=== PATIENT | female | born 2000 | race Caucasian/White ===

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

== ENCOUNTER 2021-02-09 11:55 | Outpatient (CLI) | payer OTHER, SELFPAY ==
[2021-02-09 13:27] LABS: Basophils Percent Auto 0.2 % (0.2-1.2); Eosinophils Absolute Auto 0.2 K/mm3 (0-0.3); Eosinophils Percent Auto 1.3 % (0-4.4); Hematocrit 37.9 % (37.0-47.0); Hemoglobin 12.8 g/dL (12.0-15.0); Immature Granulocyte Percent A 0.6 % (0-0.5); Lymphocytes Absolute Auto 1.62 K/mm3 (0.9-3.2); Lymphocytes Percent Auto 10.1 % (18.3-44.2); Mean Corpuscular HGB Conc 33.8 g/dl (32-36); Mean Corpuscular Hemoglobin 31.8 pg (26-34); Mean Corpuscular Volume 94.3 fl (80-100); Mean Platelet Volume 9.4 fl (7.4-10.4); Monocytes Absolute Auto 0.8 K/mm3 (0.1-0.6); Monocytes Percent Auto 4.8 % (2.6-8.5); Neutrophils Absolute Auto 13.3 K/mm3 (1.3-6.7); Platelet Count Result 348 k/mm3 (150-375); Red Blood Count 4.02 M/mm3 (4.2-5.4); Red Cell Distribution Width 12.4 % (11.5-14.5); White Blood Count 16.1 K/mm3 (4.5-10.0)
[2021-02-09 13:47] LABS: Glucose 1 Hour PP 50gm Dose 89 mg/dL
== END 2021-02-09 11:56 | disposition home or self-care (01) ==
LOC: ANHLAB 11:59
PROVIDERS: PCP Nurse Practitioner Family; Visit Provider Student in an Organized Health Care Education/Training Program
DX: Z34.02 Encounter for supervision of normal first pregnancy, second trimester (principal)
CPT/HCPCS: 36415; 82947; 85025

== ENCOUNTER 2021-02-16 18:17 | Observation (INO) | payer OTHER, SELFPAY ==
[2021-02-16] VITALS (16 sets, daily range): BP systolic 99; BP diastolic 72; PULSE 69–103; O2SAT 100
--- NOTE | 2021-02-16 18:15 | PC.NURSE ---
Cat G gave report to Rina ramirez RN. Pt taken to OB via W/C.
[2021-02-16 19:03] LABS: Add Urine Microscopic? YES; Appearance Urine Clear (Clear); Bacteria Urine Trace /hpf; Bilirubin Urine Negative (Negative); Blood Urine Negative (Negative); Color Urine Straw (Yellow); Glucose Urine UA Negative (Negative); Ketones Urine 1+ mg/dL (Negative); Leukocyte Esterase Ur Negative LEU/UL (NEGATIVE); Mucus Urine Rare /lpf; Nitrate Urine Negative (Negative); Protein Urine Negative (Negative); Squamous Epithelial Cell Urine Occasional /hpf (Few); Urobilinogen Urine Negative mg/dL (<2.0); WBC Urine 0-3 /hpf (0-3)
[2021-02-16 19:08] LABS: Specific Grav Ur 1.004 (1.001-1.035)
[2021-02-16] MEDS: TERBUTALINE SULFATE 1 MG/ML VIAL 0.25 MG SUB-Q (19:27)
[2021-02-16 20:02] LABS: Fetal Fibronectin Negative
--- NOTE | 2021-03-10 08:30 | PM.OBTRLD ---
OB - Triage/Final Diagnosis Visit Information Comments/Additional reasons for admission: I have assessed the risk for this patient, Janeen Mo, and determined that she would benefit from observation care. Evaluation Laboratory results: Laboratory Tests 02/16/21 02/16/21 18:48 19:26 Urine Color Straw Urine Appearance Clear Urine pH 7.0 Ur Specific [place] 1.004 Urine Protein Negative Urine Glucose (UA) Negative Urine Ketones 1+ H Ur Blood (Man) Negative Urine Nitrate Negative Urine Bilirubin Negative Urine Urobilinogen Negative Ur Leukocyte Esterase Negative Urine WBC 0-3 Ur Squamous Epith Cells Occasional Urine Bacteria Trace Urine Mucus Rare Fibronectin Negative Final Diagnosis (1) Pelvic pain affecting : Code(s): O26.899 - Other specified related conditions, unspecified trimester; R10.2 - Pelvic and perineal pain Status: Acute
== END 2021-02-16 20:42 | disposition home or self-care (01) ==
PROVIDERS: Admitting Provider Obstetrics & Gynecology; PCP Nurse Practitioner Family; Visit Provider Obstetrics & Gynecology
DX: O26.893 Other specified pregnancy related conditions, third trimester (principal); R10.2 Pelvic and perineal pain; Z3A.29 29 weeks gestation of pregnancy
CPT/HCPCS: 81001; 82731; 87086; 96372; G0378; G0379; J3105

== ENCOUNTER 2021-02-26 10:47 | Emergency (ER) | payer OTHER, SELFPAY ==
--- NOTE | ~2021-02-26 | XR_ITS ---
EXAMINATION: XR hand LT min 3V DATE: 02/26/2021 11:06 INDICATION: Left hand pain. TECHNIQUE: 3 views of left hand were obtained. COMPARISON: Left wrist radiograph 02/07/2013 FINDINGS: Bone alignment is normal. There is a punctate calcification at ulnar base of first proximal phalanx. Joint spaces are normal. IMPRESSION: 1. Punctate calcification at ulnar base of first proximal phalanx, which may be an acute avulsion fra cture or a finding from old injury. Reviewed, dictated and finalized at location A. [employer] IMPRESSION: 1. Punctate calcification at ulnar base of first proximal phalanx, which may be an acute avulsion fracture or a finding from old injury.
[2021-02-26 10:53] VITALS: BP 106/70; PULSE 102; RESP 16; TEMP 36.8; O2SAT 100
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
--- NOTE | 2021-02-26 12:15 | PC.NURSE ---
Pt was able to move thumb but has severe pain, cap refill less than 3sec
--- NOTE | 2021-02-26 12:27 | PC.NURSE ---
PCT at bedside completing thumb spica
[2021-02-26 12:59] VITALS: BP 118/77; PULSE 90; RESP 18; O2SAT 97
== END 2021-02-26 13:00 | disposition home or self-care (01) ==
PROVIDERS: Emergency Provider Emergency Medicine; PCP Nurse Practitioner Family
DX: S63.602A Unspecified sprain of left thumb, initial encounter (principal); Z87.891 Personal history of nicotine dependence; W22.8XXA Striking against or struck by other objects, initial encounter
CPT/HCPCS: 29125; 73130; 99283

== ENCOUNTER 2021-03-18 16:32 | Observation (INO) | payer OTHER, SELFPAY ==
[2021-03-18 17:00] VITALS: BP 117/80; PULSE 96
[2021-03-18 17:10] VITALS: BMI 21.9
--- NOTE | 2021-03-18 17:10 | OBADM ---
This patient, Janeen Mo, admitted to the OB room [facility] for observation. Patient/family oriented to hospital policies and general routines including ID bracelet, bed and alarms, visiting hours, pain management, procedures, bathroom and other care routines, personal items, smoking policy, room service/diet, and visiting hours. Patient/Family are encouraged to report perceived risks to care and to ask questions if they do not understand what they are told or what they should do.
[2021-03-18 17:15] VITALS: BP 110/83; PULSE 87
--- NOTE | 2021-04-08 12:56 | PM.OBTRLD ---
OB - Triage/Final Diagnosis Visit Information Comments/Additional reasons for admission: I have assessed the risk for this patient, Janeen Mo, and determined that she would benefit from observation care. Final Diagnosis (1) Decreased movement: Code(s): O36.8190 - Decreased movements, unspecified trimester, not applicable or unspecified Status: Acute
== END 2021-03-18 18:01 | disposition home or self-care (01) ==
PROVIDERS: Admitting Provider Student in an Organized Health Care Education/Training Program; PCP Nurse Practitioner Family; Visit Provider Student in an Organized Health Care Education/Training Program
DX: O36.8130 Decreased fetal movements, third trimester, not applicable or unspecified (principal); Z3A.33 33 weeks gestation of pregnancy
CPT/HCPCS: 84112; G0378; G0379

== ENCOUNTER 2021-03-26 09:59 | Outpatient (CLI) | payer OTHER, SELFPAY ==
[2021-03-26 10:27] LABS: Basophils Percent Auto 0.2 % (0.2-1.2); Eosinophils Absolute Auto 0.1 K/mm3 (0-0.3); Eosinophils Percent Auto 0.8 % (0-4.4); Hematocrit 36.4 % (37.0-47.0); Hemoglobin 12.4 g/dL (12.0-15.0); Immature Granulocyte Absolute 0.07 K/mm3 (0.00-0.031); Immature Granulocyte Percent A 0.5 % (0-0.5); Lymphocytes Absolute Auto 2.05 K/mm3 (0.9-3.2); Lymphocytes Percent Auto 15.9 % (18.3-44.2); Mean Corpuscular HGB Conc 34.1 g/dl (32-36); Mean Platelet Volume 9.7 fl (7.4-10.4); Monocytes Absolute Auto 0.7 K/mm3 (0.1-0.6); Monocytes Percent Auto 5.3 % (2.6-8.5); Neutrophils Percent Auto 77.3 % (45.5-73.1); Platelet Count Result 313 k/mm3 (150-375); Red Cell Distribution Width 12.1 % (11.5-14.5); White Blood Count 12.9 K/mm3 (4.5-10.0)
[2021-03-26 11:19] LABS: HIV 1/2 Ab P24 Ag Result Negative (Negative)
[2021-03-26 11:55] LABS: Rapid Plasma Reagin Non-Reactive (NonReactive)
== END 2021-03-26 10:00 | disposition home or self-care (01) ==
PROVIDERS: PCP Nurse Practitioner Family; Visit Provider Student in an Organized Health Care Education/Training Program
DX: Z34.90 Encounter for supervision of normal pregnancy, unspecified, unspecified trimester (principal); Z3A.00 Weeks of gestation of pregnancy not specified
CPT/HCPCS: 36415; 85025; 86592; 86703; G0432

== ENCOUNTER 2021-04-15 00:20 | Inpatient (IN) | payer OTHER, SELFPAY ==
[2021-04-15] VITALS (101 sets, daily range): BP systolic 84–160; BP diastolic 46–127; PULSE 50–210; RESP 16–20; TEMP 36.2–36.9; O2SAT 99–100; BMI 22.6
[2021-04-15 01:02] LABS: Basophils Percent Auto 0.3 % (0.2-1.2); Eosinophils Absolute Auto 0.1 K/mm3 (0-0.3); Eosinophils Percent Auto 0.5 % (0-4.4); Hemoglobin 13.1 g/dL (12.0-15.0); Immature Granulocyte Absolute 0.08 K/mm3 (0.00-0.031); Immature Granulocyte Percent A 0.5 % (0-0.5); Mean Corpuscular HGB Conc 34.5 g/dl (32-36); Mean Corpuscular Hemoglobin 30.8 pg (26-34); Mean Corpuscular Volume 89.2 fl (80-100); Mean Platelet Volume 9.7 fl (7.4-10.4); Monocytes Absolute Auto 0.9 K/mm3 (0.1-0.6); Neutrophils Absolute Auto 11.6 K/mm3 (1.3-6.7); Neutrophils Percent Auto 74.7 % (45.5-73.1); Platelet Count Result 345 k/mm3 (150-375); Red Blood Count 4.26 M/mm3 (4.2-5.4); Red Cell Distribution Width 12.7 % (11.5-14.5); White Blood Count 15.5 K/mm3 (4.5-10.0)
--- NOTE | 2021-04-15 01:12 | LDADM ---
This patient, Janeen Mo, was admitted to Labor/Delivery/Recovery 104 on 04/15/21 at 00:20. Plans for labor, pain management and were discussed with patient. Patient/family oriented to hospital policies and general routines including ID bracelet, bed and alarms, visiting hours, pain management, procedures, bathroom and other care routines, personal items, smoking policy, room service/diet and guest tray routines, infant security routines, and visiting hours. Patient/Family are encouraged to report perceived risks to care and to ask questions if they do not understand what they are told or what they should do. See OBIX for further documentation.
[2021-04-15] MEDS: LACTATED RINGERS 1,000 ML 125 ML IV CONT ×2 (01:31→08:41)
[2021-04-15] MEDS: OXYTOCIN 30 UNITS/NS 500 ML 30 UNITS/500 ML BAG IV CONT (01:32)
--- NOTE | 2021-04-15 05:22 | WPDANESEPP ---
Anes - Eval Pre Procedure Procedure: Labor epidural Date/Time: 04/15/21 05:22 Surgeon: Ethan Preop Diagnosis: Abd pain with contractions Pre Op Diagnosis: IOL Patient Data Age: 21 Gender: F Height: 1.63 m Weight: 60 kg Last Vital Signs Temp 97.9 F 04/15/21 01:45 Pulse 70 04/15/21 04:45 BP 102/65 04/15/21 04:45 Allergies Allergy/AdvReac Type Severity Reaction Status Date / Time No Known Allergies Allergy Unknown Verified 04/14/21 08:57 Home Medications Medication Instructions Recorded Confirmed Type docosahexaenoic acid 200 mg capsule mg PO 10/22/20 History Laboratory Tests 04/15/21 04/15/21 04/15/21 00:51 00:51 00:51 WBC 15.5 K/mm3 H K/mm3 (4.5-10.0) RBC 4.26 M/mm3 M/mm3 (4.2-5.4) Hgb 13.1 g/dL g/dL (12.0-15.0) Hct 38.0 % % (37.0-47.0) MCV 89.2 fl fl (80-100) MCH 30.8 pg pg (26-34) MCHC 34.5 g/dl g/dl (32-36) RDW 12.7 % % (11.5-14.5) Plt Count 345 k/mm3 k/mm3 (150-375) MPV 9.7 fl fl (7.4-10.4) Immature Gran % (Auto) 0.5 % % (0-0.5) Neut % (Auto) 74.7 % H % (45.5-73.1) Lymph % (Auto) 18.0 % L % (18.3-44.2) [place] % (Auto) 6.0 % % (2.6-8.5) Eos % (Auto) 0.5 % % (0-4.4) Baso % (Auto) 0.3 % % (0.2-1.2) Lymph # (Auto) 2.80 K/mm3 K/mm3 (0.9-3.2) [place] # (Auto) 0.9 K/mm3 H K/mm3 (0.1-0.6) Eos # (Auto) 0.1 K/mm3 K/mm3 (0-0.3) Baso # (Auto) 0.0 K/mm3 K/mm3 (0.0-0.1) Abs Immat Gran (auto) 0.08 K/mm3 H K/mm3 (0.00-0.031) Absolute Neuts (auto) 11.6 K/mm3 H K/mm3 (1.3-6.7) Absolute Nucleated RBC 0.0 K/mm3 K/mm3 (0.0-0.012) Nucleated RBC % 0.0 % % (0.0-0.2) RPR Pending Blood Type A Positive Antibody Screen Negative Patient hx anesthesia problems: none Family hx anesthesia problems: none Results Review: All pre-operative results and documents have been reviewed as part of the pre-operative evaluation. [facility] Past Medical History Medical History Anxiety IUGR, Surgical History Surgical History S/P right knee surgery Social History Social History Smoking status: Never smoker Alcohol intake: never Substance use: current Gender identity (if verbalized by the patient): Female Spiritual care concerns: No Exam Day of Procedure 04/15/21 05:22 Patient weight: normal Airway: Mallampati scale class II Neurological: alert and oriented
[2021-04-15] MEDS: fentaNYL CITRATE INJ (*CRX) 100 MCG/2 ML VIAL IV PUSH ×2 (08:41→09:44)
[2021-04-15 09:16] LABS: Amphetamine Screen Urine Negative (Negative); Barbiturate Screen Urine Negative (Negative); Benzodiazepines Screen Urine Negative (Negative); Cannabinoid Screen Urine Positive (Negative); Cocaine Screen Urine Negative (Negative); Methadone Screen Urine Negative (Negative); Opiate Screen Urine Negative (Negative); Phencyclidine Screen Urine Negative (Negative)
--- NOTE | 2021-04-15 09:38 | PM.IMHP ---
H&P: HPI History of Present Illness Date/Time: 04/15/21 09:38 Patient is a 21-year-old LMP 07/17/2020 currently 37 weeks 3 days gestation. Patient is dated by an ultrasound on 11/05/2020 at 14 weeks gestation with an YESSY 05/03/2021. Patient presents to labor and delivery for induction of labor secondary to intrauterine growth restriction. growth restriction was identified in February 2021 and patient has been followed closely since then. Estimated weight less than 3% on growth scan yesterday and recommendation was made by MFM to proceed with delivery. In general, patient reports feeling well. Denies any vaginal bleeding or leakage of fluid. Reports occasional contractions. Reports good movement. Chief Complaint: Intrauterine at 37w3d gestation Intrauterine growth restriction Review of Systems Review of Systems: All systems reviewed & are unremarkable except as noted in HPI and below Constitutional: Constitutional: Reports as per HPI, Reports no additional constitutional complaints, Denies chills, Denies fever(s), Denies headache(s) and Denies night sweats Eyes: Eyes: Reports as per HPI and Reports no additional eye complaints ENT: Reports system reviewed and no additional complaints, except as documented, Reports as per HPI, Reports Normal hearing present and Denies headache(s) Cardiovascular: Cardiovascular: Reports as per HPI, Reports no additional cardiovascular complaints, Denies chest pain and Denies dyspnea Respiratory: Respiratory: Reports as per HPI, Reports no additional respiratory complaints, Denies cough and Denies dyspnea Gastrointestinal: Gastrointestinal: Reports as per HPI, Reports no additional gastrointestinal complaints, Denies abdominal pain, Denies change in bowel habits, Denies change in stool character, Denies nausea and Denies vomiting Genitourinary: Genitourinary: Reports no additional female genitourinary complaints, Reports as per HPI, Denies abnormal vaginal bleeding, Denies genital lesions, Denies hot flashes, Denies dyspareunia, Denies pelvic pain, Denies sexual dysfunction, Denies urinary incontinence, Denies vaginal discharge, Denies vaginal dryness and Denies vaginal odor Musculoskeletal: Musculoskeletal: Reports no additional musculoskeletal complaints and Reports as per HPI Integumentary/Breasts: Skin/Breast: Reports system reviewed and no additional complaints, except as docu, Reports as per HPI, Denies breast pain and Denies nipple discharge Neurologic: Reports system reviewed and no additional complaints, except as documented, Reports as per HPI, Reports Normal hearing present and Denies headache(s) Psychiatric: Psychiatric: Reports no additional psychiatric complaints, Reports as per HPI, Denies anxiety and Denies depression Endocrine: Endocrine: Reports no additional endocrine complaints and Reports as per HPI Hematologic/Lymphatic: Hematologic/Lymphatic: Reports no additional hematologic/lymphatic complaints and Reports as per HPI Allergic/Immunologic: Allergic/Immunologic: Reports no additional allergic/immunologic complaints and Reports as per HPI PMFSH Past Medical History Medical History Anxiety IUGR, Surgical History Surgical History S/P right knee surgery Social History Social History Smoking status: Never smoker Alcohol intake: never Substance use: current Gender identity (if verbalized by the patient): Female Spiritual care concerns: No Meds Home Medications and Allergies Home Medications Medication Instructions Recorded Confirmed Type docosahexaenoic acid 200 mg capsule 1 mg PO DAILY 10/22/20 History Allergies Allergy/AdvReac Type Severity Reaction Status Date / Time No Known Allergies Allergy Unknown Verified 04/14/21 08:57 Vital Signs
--- NOTE | 2021-04-15 09:43 | WPDHPUPDATE1 ---
History and Physical Update Update Date/Time: 04/15/21 09:43 History and Physical has been reviewed, including an updated exam of the patient. There are NO changes in the patient's condition. Risks, benefits, and alternatives have been discussed and questions answered. Patient agrees to proceed with procedure.
[2021-04-15] MEDS: ONDANSETRON INJ 4 MG/2 ML VIAL IV PUSH (11:54)
[2021-04-15] MEDS: OXYTOCIN 30 UNITS/NS 500 ML 30 UNITS/500 ML BAG 125 UNITS IV CONT (12:07)
--- NOTE | 2021-04-15 12:14 | PM.OBPRVD ---
OB - Delivery Note Procedure Delivery date: 04/15/21 Procedure: The patient is a 21-year-old now who was admitted to labor and delivery earlier this morning at 37 weeks 3 days gestation for induction of labor secondary to intrauterine growth restriction. Initial cervical exam was approximately 2 cm dilated. Pitocin was started for labor induction and continuously titrated throughout the morning. Artificial rupture membranes was performed at 8:01 a.m. Clear amniotic fluid was noted. Cervical exam was approximately 3 cm dilated. Patient became uncomfortable and requested an epidural for pain management which was placed without difficulty. Patient continued to make cervical change and was noted to be fully dilated at 11:03 a.m. Patient was encouraged to push and found to be pushing well. She was prepped and draped for delivery. At 11:31 a.m., patient delivered head atraumatically and without difficulty in BRANDO presentation. Occiput restituted to maternal left side. With subsequent push, the 's neck, shoulders, and rest of body delivered without difficulty. Infant was crying spontaneously. Infant's nose and mouth were suctioned with bulb suction and infant was placed on maternal abdomen where care was assumed by awaiting nursing staff. Delayed cord clamping was performed for approximately 60 seconds. was noted to void spontaneously. The cord was clamped and cut. A segment of cord was collected for cord gases. Cord blood was collected. The placenta was delivered spontaneously and intact. Uterine fundus was noted to be firm with massage. On inspection, bilateral periurethral lacerations were noted. Although hemostatic, these lacerations were reapproximated with 3-0 Vicryl in usual fashion. Estimated blood loss for entire delivery was 150 cc. Infant was a live-born male , Apgars 8 and 9, weighing 4 lb 14 oz. Both mother and baby doing well at end of delivery. events: Labor Induction Intrapartal events: None Induction method: per pitocin protocol Delivery augmentation: rupture of membranes Delivery monitor: external FHT and external uterine Route of delivery: Laceration Description: Periurethral (bilateral) Delivery repair: vicryl (3-0) Specimen: Yes (placenta and cord, cord blood, and cord gases) Quantitative Blood Loss (ml): 150 Anesthesia type: Epidural Disposition: floor Complications: No immediate complications Baby Date of : 04/15/21 Time of : 11:31 Weeks of gestation at delivery: 37 (37.3) gender: Male Weight (pounds): 4 Weight (ounces): 14 presentation: vertex position: Left Occiput Anterior Placenta delivery description: Spontaneous cord vessel description: 3 Vessels and Delayed Cord Clamping score one minute: 8 score five minutes: 9
--- NOTE | 2021-04-15 14:40 | OBPPTRN ---
Patient transferred to post room # 2914 via wheelchair. Support person present. Oriented to unit, room, information board, rooming in, admission packet and security measures. Patient verbalizes understanding.
[2021-04-15] MEDS: IBUPROFEN 600 MG TABLET PO ×2 (17:09→23:13)
[2021-04-16 03:20] VITALS: BP 111/70; PULSE 64; RESP 16; TEMP 36.7; O2SAT 100
[2021-04-16 04:55] LABS: Hematocrit 33.6 % (37.0-47.0); Hemoglobin 11.5 g/dL (12.0-15.0)
[2021-04-16] MEDS: IBUPROFEN 600 MG TABLET PO ×2 (05:30→15:48)
[2021-04-16 08:00] VITALS: BP 109/65; PULSE 65; RESP 16; TEMP 36.5; O2SAT 100
[2021-04-16] MEDS: ACETAMINOPHEN 325 MG TABLET 650 MG PO (08:29)
[2021-04-16] MEDS: MULTIVIT/MIN/PREN/FOL AC/IRON TABLET 1 TAB PO (08:29)
--- NOTE | 2021-04-16 10:51 | WPDANLDPN2 ---
Anes-Prog Note L&D Date/Time: 04/16/21 10:51 Comfortable throughout: labor and delivery Neuraxial method: epidural Epidural/Spinal procedure site: clean & non-tender Neuro status: Neuro function grossly intact. Cardiovascular status: normal Respiratory status: normal Airway patency: baseline Mental status: baseline Post-Op hydration status: normal Vital Signs: Last Vital Signs Temp 36.5 C 04/16/21 08:00 Pulse 65 04/16/21 08:00 Resp 16 04/16/21 08:00 BP 109/65 04/16/21 08:00 Pulse Ox 100 04/16/21 08:00 Pain score (VAS): 04/20 Post-procedural complaints: none Patient feedback: Patient satisfied with anesthetic care.
--- NOTE | 2021-04-16 11:00 | PM.OBPNVD ---
OB - PN: Subj Subjective Date/time seen: 04/16/21 11:00 Patient doing well. Minimal soreness. Pain controlled with medication. Minimal-moderate lochia. Ambulating without difficulty. OB - PN: Obj Data Labs CBC & Chem 7: 04/16/21 03:35 Labs: Laboratory Results - last 24 hr 04/15/21 00:51 RPR Non-reactive OB - PN A/P Assessment and Plan (1) Normal spontaneous vaginal delivery: Code(s): O80 - Encounter for full-term uncomplicated delivery Status: Acute Assessment and Plan: PPD#1 doing well continue routine care anticipate dc home tomorrow Time Spent With Patient Time: Total time spent is greater than 50% in coordination of care (as documented) at patient's floor/unit and/or counseling patient: Exam Const: General: cooperative, healthy appearing, comfortable and no acute distress GI: Inspection: non-distended GI Palp: Yes Soft to palpation and No Tenderness to palpation present (GI) Other: fundus firm below umbilicus Extrem: Right lower extremity: no edema Left lower extremity: no edema Other: no calf tenderness
--- NOTE | 2021-04-16 13:40 | PC.NURSE ---
04/15/2021 1515 - RN requested a consult to room 291. RN walks into the room and is swaddled in the bassinet. Maternal mother discusses her plan to pump and feed the 37 week EGA baby breastmilk. Consulted with patient, reviewed feeding cues, frequencies, duration of feedings, feeding elimination flow sheet, and signs of adequate intake. Demonstrated stimulation techniques to wake for feeding. Assisted with infant to breast. Reviewed positioning/alignment, holding breast and asymmetrical latch on. Infant was unable to latch correctly. Reviewed signs of a correct latch, effective nursing and suck swallow ratio. was unable to maintain latch without discomfort to mother. Nipple care reviewed. Instructed mother to call out for RN assistance if she is unable to latch infant for feeding or she has discomfort with nursing. Instructed feeding should be initiated three hours from start of last feeding or if feeding cues are noted before. Mother voiced understanding of information shared. Reviewed resources in the Mom/Baby guide. Instructed mother to call out for future feedings if assistance is needed. Infant placed s2s and RN reported to primary RN. 04/16/2021 1000 - Primary evening shift RN initiated att/pump/feed plan for mom and infant. Mom has attempted to breastfeed, pumped 10cc of human milk and plans to bottle feed infant and continue to follow this feeding plan adjusting human milk or formula depending on the needs. Breast pump provided due to ineffective feeding. Instructions given on breast pump care and usage, pumping schedule, nipple care, and collection and storage of breast milk. Encouraged [id number], breast massage and manual expression to stimulate supply. Assessed patient for correct flange size, placement and draw. Patient verbalizes and demonstrates understanding of instructions as given by evening RN from 04/15 and also reported to RN.
[2021-04-16 13:58] LABS: Rapid Plasma Reagin Non-Reactive (NonReactive)
--- NOTE | 2021-04-16 14:18 | PCCCNOTE ---
Addendum entered by ERIN Shelton 04/16/21 15:20: Report not taken by DCFS Original Note: Received referral to see pt. due to positive urine drug screen for thc. Met with pt. this morning. Pt. reports that she is in foster care and her case managers is through [place]. She reports that she used marijuana occasionally during her . She reports that she lives with father of baby (he was in the shower during my visit). She reports that his family is very supportive. She reports that she is current with [facility], has all needed items for baby at home, including a bassinet and crib. Pt. denies any needs. Online report made to [facility] due to positive drug screens. Reference number is [id number]. It is not anticipated that DCFS will take a report or follow up, as there are no other known issues/concerns.
--- NOTE | 2021-04-16 17:19 | PC.NURSE ---
Patient viewed the discharge video Mother & Baby Care, The First Two Weeks . Patient was given the opportunity and encouraged to ask questions. Patient verbalized understanding of information shared and has been given the mother/baby guide for home reference.
[2021-04-16 20:00] VITALS: BP 91/67; PULSE 92; RESP 18; TEMP 36.6; O2SAT 100
[2021-04-17 08:15] VITALS: BP 115/88; PULSE 90; RESP 16; TEMP 36.6; O2SAT 100
[2021-04-17] MEDS: DOCUSATE SODIUM 100 MG CAPSULE PO (09:25)
[2021-04-17] MEDS: MULTIVIT/MIN/PREN/FOL AC/IRON TABLET 1 TAB PO (09:25)
[2021-04-17] MEDS: IBUPROFEN 600 MG TABLET PO (09:25)
--- NOTE | 2021-04-17 10:13 | PM.OBPNVD ---
OB - PN: Subj Subjective Date/time seen: 04/17/21 10:13 Patient doing well. Reports mild vaginal soreness. Otherwise, denies significant pain. Minimal lochia. Ambulating without difficulty. OB - PN: Obj Data Labs CBC & Chem 7: 04/16/21 03:35 Labs: Laboratory Results - last 24 hr 04/15/21 00:51 RPR Non-reactive OB - PN A/P Assessment and Plan (1) Normal spontaneous vaginal delivery: Code(s): O80 - Encounter for full-term uncomplicated delivery Status: Acute Assessment and Plan: PPD#2 doing well continue routine care dc home in stable condition emergency precautions reviewed f/u in office in 4-6 weeks for visit Time Spent With Patient Time: Total time spent is greater than 50% in coordination of care (as documented) at patient's floor/unit and/or counseling patient: Exam Const: General: cooperative, healthy appearing, comfortable and no acute distress GI: Inspection: non-distended GI Palp: Yes Soft to palpation and No Tenderness to palpation present (GI) Other: fundus firm below umbilicus Extrem: Right lower extremity: no edema Left lower extremity: no edema Other: no calf tenderness Psych: Appearance: grossly normal Mental Status: mental status grossly normal
--- NOTE | 2021-04-17 10:17 | PM.OBDSVD ---
DS: Admitting Diagnosis Discharge Date 04/17/21 Admitting Diagnosis Intrauterine at 37w3d gestation Intrauterine growth restriction OB - DS: Summary OB Procedures : None OB Procedures Intrapartum: Spontaneous Vag Delivery OB Procedures: : None Time Spent with Patient Time attestation: Total time spent providing and/or coordinating discharge services: DS: Data Data Completed and Pending Pending studies at discharge: Pending at discharge 04/15/21 11:57 Surgical [PTH] Routine Labs on day of discharge: Labs from last 24 hours 04/15/21 00:51 RPR Non-reactive Discharge Plan Discharge Attending physician on discharge: Valerie Long Discharging Clinician: Valerie Long Anticipated Discharge Date/Time: 04/17/21 10:17 Patient Disposition: Home, Self-Care Activity: as tolerated and pelvic rest Diet: regular Discharge Instructions: Call office ([phone]) to schedule a visit in 4-6 weeks. You may take Ibuprofen 600mg every 6 hours as needed for pain. Pain medication may make you constipated. It may be helpful to take an [id number] stool softener, such as Colace and/or Senokot, along with the pain medication to help lessen constipation. Call office or go to ED for pain not controlled with medication, headache, chest pain, shortness of breath, fever, chills, persistent nausea or vomiting, severe abdominal pain, heavy vaginal bleeding >2 pads/hour, foul vaginal discharge or odor, or problems with your breasts. Patient Instructions: Antibiotic Form Stand Alone Forms: General Discharge Information Follow-up/Referrals: Valerie Long MD [Physician] - Discharge Medications: Continued DHA 200 mg capsule 1 mg PO DAILY RF: 0 Date of admission: 04/15/21 00:20 Primary Care Provider: TEREDELGADO Admitting Provider: Valerie Long Attending physician on admission: Valerie Long Condition: Stable
--- NOTE | 2021-04-17 11:31 | PC.NURSE ---
1050 - Pt is caring for infant and discussing certificate information with staff. Reported to RN patient is pumping well and feeding baby human milk. Primary RN will initiate feeding plan for discharging to home.
--- NOTE | 2021-04-17 12:27 | PC.NURSE ---
1220 - Discussed plan of care to feed infant 30-40 cc of human milk mixed with Enfamil enfa sure formula. Pt is scheduled for follow up appt tomorrow A.M. Instructed to call ICP if intake/output less than required. Reviewed regular medications mother is taking. Information provided per Latricia. Reviewed community resources on the [employer] website and in the Mom/Baby guide. Information on outpatient services provided. Mother has no further questions at this time.
[2021-04-18 08:34] VITALS: BP 112/69; PULSE 76; RESP 20; TEMP 36.8; O2SAT 100
== END 2021-04-17 12:33 | disposition home or self-care (01) | DRG 560 ==
PROVIDERS: Admitting Provider Student in an Organized Health Care Education/Training Program; PCP Nurse Practitioner Family; Visit Provider Student in an Organized Health Care Education/Training Program
DX: O36.5930 Maternal care for other known or suspected poor fetal growth, third trimester, not applicable or unspecified (principal); O71.82 Other specified trauma to perineum and vulva; Z3A.37 37 weeks gestation of pregnancy; Z37.0 Single live birth
CPT/HCPCS: 36415; 80307; 85014; 85018; 85025; 86592; 86850; 86900; 86901; 88307; A9270; J2405; J2590; J2795; J3010; J7120

== ENCOUNTER 2022-03-22 10:44 | Outpatient (CLI) | payer MEDICAID, SELFPAY | END 2022-03-22 10:45 | disposition home or self-care (01) | LOC: ANHLAB 10:45 | PROVIDERS: PCP Nurse Practitioner Family; Visit Provider Student in an Organized Health Care Education/Training Program | DX: Z32.01 Encounter for pregnancy test, result positive (principal) | CPT/HCPCS: 36415; 84144; 84702 ==

== ENCOUNTER → 2022-03-23 08:10 | Outpatient (CLI) | payer MEDICAID, SELFPAY ==
--- NOTE | ~2022-03-23 | US_ITS ---
EXAMINATION: US OB follow up DATE: 03/23/2022 08:40 INDICATION: Endocrine disorder, unspecified. TECHNIQUE: Real-time ultrasound of the pelvis was performed. COMPARISON: None. FINDINGS: There is a single living fetus in variable presentation. The placenta is fundal. There is a 2.8 x 5. 1 x 4.5 cm hypoechoic subchorionic hematoma. There is a 1.7 x 2.9 x 3.3 cm hypoechoic subchorionic he matoma. heart rate is 147 beats per minute (bpm). The amniotic fluid index is subjectively norm al. The following biometric data were obtained: Biparietal diameter (BPD): 3.1 cm; head circumference (HC): 11.3 cm; abdominal circumference (AC): 9. 9 cm; femur length (FL): 1.7 cm. These measurements are concordant. Estimated weight is 127 g +/- 19 g. As single measurements, these parameters are each equal to the following estimated gestational ages: BPD: 15 weeks 5 days. HC: 15 weeks 4 days. AC: 16 weeks 0 days. FL: 15 weeks 1 days. estimated gestational age based solely on measurements from this exam is 15 weeks 4 days +/- 1 week 1 day. IMPRESSION: 1. Single living fetus in variable presentation. 2. Estimated gestational age of 15 weeks and 4 days +/- 1 week and 1 day with estimated date of deli very of 09/10/2022. 3. Two subchorionic hematomas. Reviewed, dictated and finalized at location A. SERVICE TECHNICIAN IMPRESSION: 1. Single living fetus in variable presentation. 2. Estimated gestational age of 15 weeks and 4 days +/- 1 week and 1 day with estimated date of delivery of 09/10/2022. 3. Two subchorionic hematomas.
== END ==
PROVIDERS: PCP Student in an Organized Health Care Education/Training Program; Visit Provider Student in an Organized Health Care Education/Training Program
DX: O99.891 Other specified diseases and conditions complicating pregnancy (principal); E34.9 Endocrine disorder, unspecified
CPT/HCPCS: 76816

== ENCOUNTER 2022-03-25 09:42 | Outpatient (CLI) | payer MEDICAID, SELFPAY ==
[2022-03-25 10:23] LABS: Basophils Percent Auto 0.2 % (0.2-1.2); Eosinophils Absolute Auto 0.1 K/mm3 (0-0.3); Eosinophils Percent Auto 1.2 % (0-4.4); Hematocrit 36.7 % (37.0-47.0); Hemoglobin 12.7 g/dL (12.0-15.0); Immature Granulocyte Absolute 0.05 K/mm3 (0.00-0.031); Immature Granulocyte Percent A 0.4 % (0-0.5); Lymphocytes Absolute Auto 2.03 K/mm3 (0.9-3.2); Lymphocytes Percent Auto 17.1 % (18.3-44.2); Mean Corpuscular HGB Conc 34.6 g/dl (32-36); Mean Corpuscular Hemoglobin 31.6 pg (26-34); Mean Corpuscular Volume 91.3 fl (80-100); Monocytes Absolute Auto 0.7 K/mm3 (0.1-0.6); Neutrophils Absolute Auto 8.9 K/mm3 (1.3-6.7); Neutrophils Percent Auto 75.1 % (45.5-73.1); Platelet Count Result 297 k/mm3 (150-375); Red Blood Count 4.02 M/mm3 (4.2-5.4); White Blood Count 11.9 K/mm3 (4.5-10.0)
[2022-03-25 11:12] LABS: Vitamin D 25 Hydroxy 26.9 ng/mL
[2022-03-25 11:27] LABS: HIV 1/2 Ab P24 Ag Result Negative (Negative)
[2022-03-25 11:28] LABS: Hepatitis B Surface Antigen Negative (Negative); Rubella IgG Antibody 16.2 IU/ML
[2022-03-25 11:43] LABS: Hepatitis C Virus Antibody Negative (Negative)
[2022-03-25 12:05] LABS: Rapid Plasma Reagin Non-Reactive (NonReactive)
== END 2022-03-25 09:43 | disposition home or self-care (01) ==
LOC: ANHLAB 09:44
PROVIDERS: PCP Student in an Organized Health Care Education/Training Program; Visit Provider Student in an Organized Health Care Education/Training Program
DX: Z34.90 Encounter for supervision of normal pregnancy, unspecified, unspecified trimester (principal)
CPT/HCPCS: 36415; 82306; 84443; 85025; 86592; 86703; 86762; 86787; 86803; 86850; 86900; 86901; 87086; 87340; G0432